=== PATIENT | male | born 1955 | race Caucasian/White ===

== ENCOUNTER 2016-12-08 10:49 | Outpatient (CLI) | payer OTHER ==
[2016-12-08 12:11] LABS: #Basophils 0.1 thou/uL (0.0-0.2); #Eosinphils 0.1 thou/uL (0.0-0.7); #Lymphocytes 1.2 thou/uL (1.20-3.40); #Monocytes 0.3 thou/uL (0.11-0.59); #Neutrophils 1.2 thou/uL (1.40-6.50); %Basophils 1.9 % (0.0-1.0); %Lymphocytes 41.8 % (21.0-51.0); %Monocytes 10.9 % (0.0-10.0); %Neutrophils 41.4 % (42.0-75.0); Hemoglobin 13.3 g/dL (14.0-18.0); Mean Corpuscular HGB CONC 32.2 g/dL (32.0-36.0); Mean Corpuscular Hemoglobin 31.5 pg (27.0-31.0); Mean Corpuscular Volume 97.7 fl (80.0-94.0); Mean Platelet Volume 7.1 fL (7.4-10.4); Platelet Count 187 thou/uL (130-400); RBC Distribution Width 12.8 % (11.5-14.5); Red Blood Cell (RBC) Count 4.22 mill/uL (4.70-6.10); White Blood Cell (WBC) Count 2.8 thou/uL (4.8-10.8)
[2016-12-08 13:22] LABS: ALT (SGPT) 24 U/L (8-55); AST (SGOT) 23 U/L (5-34); Albumin 4.1 g/dL (3.5-5.0); Alkaline Phosphatase 62 U/L (40-150); Anion Gap 14 mmol/L (10-20); BUN (Urea Nitrogen) 20 mg/dL (8.4-25.7); Bilirubin, Total 0.4 mg/dL (0.2-1.2); Calc. Creatinine Clearance 0 mL/min (70-130); Calcium 8.8 mg/dL (7.8-10.44); Carbon Dioxide 28 mmol/L (22-29); Chloride 103 mmol/L (98-107); Estimated GFR-MDRD 66; Globulin 2.1 g/dL (2.4-3.5); Glucose 85 mg/dL (70-105); Potassium 4.5 mmol/L (3.5-5.1); Protein, Total 6.2 g/dL (6.0-8.3); Sodium 140 mmol/L (136-145)
[2016-12-08 13:38] LABS: PSA-Symptomatic (DIAGNOSTIC) 1.87 ng/mL (0-4.0); Thyroid Stimulating Hormone 2.5606 uIU/mL (0.35-4.94)
[2016-12-08 14:19] LABS: Bilirubin Negative (Negative); Clarity Clear (Clear); Glucose, Urine (Dipstick) Negative (Negative); Leukocyte Negative (Negative); Nitrite Negative (Negative); Protein, Urine (Dipstick) Negative (Neg-Trace); Urobilinogen 0.2 mg/dL (0.2-1.0)
[2016-12-08 14:20] LABS: Blood, Urine Trace (Negative)
[2016-12-08 14:26] LABS: Bacteria/HPF None Seen HPF (None Seen); RBC/HPF 0-3 HPF (0-3); Squamous Epithelial 0-3 HPF (0-3); WBC/HPF 0-3 HPF (0-3)
[2016-12-08 14:51] LABS: Vitamin D, 25 Hydroxy 34.2 ng/ml (> 30.0)
[2016-12-08 18:21] LABS: Albumin (w/Testosterone Panel) 4.2 g/dL
[2016-12-08 18:47] LABS: Sex Hormone Binding Globulin 87.7 nmol/L (11-78); Testosterone, Free 76.5 pg/mL (47-244); Testosterone, Total 705.9 ng/dL (221-716)
== END 2016-12-08 10:50 | disposition home or self-care (01) ==
LOC: MADLAB 10:49
PROVIDERS: ATTEND Urology
DX: N40.1 Benign prostatic hyperplasia with lower urinary tract symptoms (principal); B19.20 Unspecified viral hepatitis C without hepatic coma; R35.1 Nocturia; R63.4 Abnormal weight loss
CPT/HCPCS: 80050; 81001; 82306; 84153; 84270; 84403